=== PATIENT | female | born 1960 | race Caucasian/White ===

== ENCOUNTER 2018-10-16 19:43 | Observation (INO) | payer BC ==
[2018-10-16] MEDS ORDERED: ASPIRIN 81 MG CHEWABLE TABLET PO ONE (20:00)
[2018-10-16] MEDS ORDERED: NITROGLYCERIN 0.4MG SL TABLET #25 BTL SL PRN ×2 (20:08→22:53)
[2018-10-16 20:20] LABS: ABSOLUTE NEUTROPHIL COUNT 4.08; BASO % 0.8 % (0-6); EOS % 1.8 % (0-6); GRAN % 57.7 % (47-80); HEMATOCRIT 40.1 % (35.0-47.0); HEMOGLOBIN 13.4 gm/dl (11.6-16.0); LYMPH % 30.2 % (16-45); MEAN CELL VOLUME 89.3 fl (81-97); MEAN CORPUSCULAR HEMOGLOBIN 29.8 pg (27-33); MEAN CORPUSCULAR HGB CONC 33.4 g/dl (32-36); MEAN PLATELET VOLUME 10.3 fl (7.4-10.4); MONO % 9.5 % (0-9); PLATELET COUNT 225 K/uL (130-400); RED BLOOD COUNT 4.49 M/uL (3.80-5.40); WHITE BLOOD COUNT W/O DIFF 7.1 K/uL (4.2-12.2)
[2018-10-16 20:29] LABS: BLOOD UREA NITROGEN 13 mg/dL (6-20); CREATININE 1.5 mg/dL (0.5-0.9); EST GLOMERULAR FILTRATION RATE 38 mL/min
[2018-10-16 20:32] LABS: GLUCOSE,RANDOM 114 mg/dL (74-109)
[2018-10-16 20:34] LABS: ALT/SGPT 30 U/L (<33); AST/SGOT 26 U/L (10.0-35.0)
[2018-10-16 20:35] LABS: ALBUMIN 4.7 g/dL (4.0-5.0); ALKALINE PHOSPHATASE 73 U/L (35-104); CREATINE PHOSPHOKINASE 104 U/L (26-192)
--- NOTE | 2018-10-16 21:34 | Emergency Department Record ---
History of Present Illness - General Chief Complaint: Chest Pain Stated Complaint: CHEST PAIN Time Seen by Provider: 10/16/18 19:59 Source: Patient Mode of Arrival: Ambulatory Limitations: No limitations - History of Present Illness Initial Comments: pt has been having intermittent cp all week that radiates to her neck, it is pressure like. she has a hx of hi chol and family hx heart diseas. she has felt sob. she also c/o rash that itches on her legs. no n/v. activity increases sob MD Complaint: Chest pain Onset/Timin -: Week(s) Onset: Other Pain Location: Left chest, Right chest Pain Radiation: Neck Severity scale (1-10): 2 Consistency: Intermittent Improves With: Nothing Worsens With: Nothing Anginal Symptoms: Dyspnea Treatments Prior to Arrival: None - Related Data Home Medications Medication Instructions Recorded Confirmed Last Taken Aspirin [Aspir-Low] 81 mg PO QHS 10/16/18 10/16/18 10/15/18 Allergies Allergy/AdvReac Type Severity Reaction Status Date / Time cefaclor [From Ceclor] Allergy hives Verified 10/16/18 20:02 Travel Screening - Travel/Exposure Within Last 30 Days Have you traveled within the last 30 days?: No - Travel/Exposure Within Last Year Have you traveled outside the [place] in the last year?: No - Additonal Travel Details Have you been exposed to anyone with a communicable illness?: No Review of Systems Reviewed: No additional complaints except as noted below Constitutional: Reports: As per HPI. Denies: Chills, Fever, Malaise, Night sweats, Weakness, Weight change Eyes: Reports: As per HPI. Denies: Eye discharge, Eye pain, Photophobia, Vision change ENT: Reports: As per HPI. Denies: Congestion, Dental pain, Ear pain, Epistaxis, Hearing loss, Throat pain Respiratory: Reports: As per HPI. Denies: Cough, Dyspnea, Hemoptysis, Stridor, Wheezes Cardiovascular: Reports: As per HPI, Chest pain, Dyspnea on exertion. Denies: Arrhythmia, Edema, Murmurs, Orthopnea, Palpitations, Paroxysmal nocturnal dyspne a, Rheumatic Fever, Syncope Endocrine: Reports: As per HPI. Denies: Fatigue, Heat or cold intolerance, Polydipsia, Polyuria Gastrointestinal: Reports: As per HPI. Denies: Abdominal pain, Constipation, Diarrhea, Hematemesis, Hematochezia, Melena, Nausea, Vomiting Genitourinary: Reports: As per HPI. Denies: Abnormal menses, Discharge, Dyspareunia, Dysuria, Frequency, Hematuria, Incontinence, Retention, Urgency Musculoskeletal: Reports: As per HPI. Denies: Arthralgia, Back pain, Gout, Joint swelling, Myalgia, Neck pain Skin: Reports: As per HPI. Denies: Bruising, Change in color, Change in hair/nails, Lesions, Pruritus, Rash Neurological: Reports: As per HPI. Denies: Abnormal gait, Confusion, Headache, Numbness, Paresthesias, Seizure, Tingling, Tremors, Vertigo, Weakness Psychiatric: Reports: As per HPI. Denies: Anxiety, Auditory hallucinations, Depression, Homicidal thoughts, Suicidal thoughts, Visual hallucinations Hematological/Lymphatic: Reports: As per HPI. Denies: Anemia, Blood Clots, Easy bleeding, Easy bruising, Swollen glands Past Medical History - SOCIAL HISTORY Smoking Status: Never smoker Alcohol Use: None Drug Use: None - RESPIRATORY Hx Respiratory Disorders: No - CARDIOVASCULAR Hx Cardio Disorders: No - NEURO Hx Neuro Disorders: No - GI Hx GI Disorders: No - Hx Genitourinary Disorders: No - ENDOCRINE Hx Endocrine Disorders: No - MUSCULOSKELETAL Hx Musculoskeletal Disorders: No - PSYCH Hx Psych Problems: No - HEMATOLOGY/ONCOLOGY Hx Hematology/Oncology Disorders: No Family Medical History Any Significant Family History?: Yes Hx Diabetes: Mother Hx Heart Disease: Mother Hx HTN: Mother Hx Kidney Disease: Mother Physical Exam - General General Appearance: Alert, Oriented x3, Cooperative, Mild distress - Head Head exam: Normal inspection - Eye Eye exam: Normal appearance, PERRL, EOMI Pupils: Normal accommodation - ENT ENT exam: Normal exam, Mucous membranes moist, Normal external ear exam, Normal orophraynx Ear exam: Normal external inspection. negative: External canal tenderness Nasal Exam: Normal inspection. negative: Discharge, Sinus tenderness Mouth exam: Normal external inspection, Tongue normal Teeth exam: Normal inspection. negative: Dental caries Throat exam: Normal inspection. negative: Tonsillar erythema, Tonsillar exudate - Neck Neck exam: Normal inspection, Full ROM. negative: Tenderness - Respiratory Respiratory exam: Normal lung sounds bilaterally. negative: Respiratory distress - Cardiovascular Cardiovascular Exam: Regular rate, Normal rhythm, Normal heart sounds - GI/Abdominal GI/Abdominal exam: Soft, Normal bowel sounds. negative: Tenderness - Rectal Rectal exam: Deferred - exam: Deferred - Extremities Extremities exam: Normal inspection, Full ROM, Normal capillary refill. negative: Tenderness - Back Back exam: Reports: Normal inspection, Full ROM. Denies: Muscle spasm, Rash noted, Tenderness - Neurological Neurological exam: Alert, CN II-XII intact, Normal gait, Oriented X3 - Psychiatric Psychiatric exam: Normal affect, Normal mood - Skin Skin exam: Dry, Intact, Normal color, Rash, Warm Distribution of rash: RLE, LLE Description of rash: Macular, Papular, Vesicular Course Vital Signs 10/16/18 19:50 Temperature 97.7 F Pulse Rate 68 Respiratory 20 Rate Blood Pressure 141/81 Pulse Ox 97 - Reevaluation(s) Reevaluation #1: 10/16/18 22:11 pt had no further cp Reevaluation #2: 10/16/18 22:20 pt remained pain free Medical Decision Making - Lab Data Result diagrams: 10/16/18 19:50 10/16/18 19:50 Lab Results 10/16/18 10/16/18 10/16/18 Range/Units 19:50 19:50 19:50 WBC 7.1 (4.2-12.2) K/uL RBC 4.49 (3.80-5.40) M/uL Hgb 13.4 (11.6-16.0) gm/dl Hct 40.1 (35.0-47.0) % MCV 89.3 (81-97) fl MCH 29.8 (27-33) pg MCHC 33.4 (32-36) g/dl RDW 13.0 (11.5-14.5) % Plt Count 225 (130-400) K/uL MPV 10.3 (7.4-10.4) fl Gran % 57.7 (47-80) % Lymphocytes % 30.2 (16-45) % Monocytes % 9.5 H (0-9) % Eosinophils % 1.8 (0-6) % Basophils % 0.8 (0-6) % Absolute Neutrophils 4.08 D-Dimer 0.30 (0-0.59) mg/L FEU Sodium 141 (136-145) mmol/L Potassium 4.0 (3.4-4.5) mmol/L Chloride 102 (98-107) mmol/L Carbon Dioxide 26.0 (22-29) mmol/L Anion Gap 13.0 (7-16) BUN 13 (6-20) mg/dL Creatinine 1.5 H (0.5-0.9) mg/dL Estimated GFR 38 mL/min Random Glucose 114 H (74-109) mg/dL Calcium 9.4 (8.6-10.0) mg/dL Total Bilirubin 0.50 (0.2-1.0) mg/dL AST 26 (10.0-35.0) U/L ALT 30 (<33) U/L Alkaline Phosphatase 73 (35-104) U/L Creatine Kinase 104 (26-192) U/L Troponin T < 0.010 (0-0.010) ng/mL Total Protein 7.0 (6.6-8.7) g/dL Albumin 4.7 (4.0-5.0) g/dL Globulin 2.3 (1.4-4.8) gm/dL Albumin/Globulin Ratio 2.0 H (1.1-1.8) Disposition Disposition: Admit Clinical Impression: Poison samantha Chest pain Qualifiers: Chest pain type: unspecified Qualified Code(s): R07.9 - Chest pain, unspecified Disposition: Still a Patient at [facility] Decision to Admit: Admit from ER Decision to Admit Date: 10/16/18 Decision to Admit Time: 22:13 Quality - Quality Measures Quality Measures: N/A - Blood Pressure Screening Does Patient Have Any of the Following: No Blood Pressure Classification: Pre-Hypertensive BP Reading Systolic Measurement: 141 Diastolic Measurement: 81 Screening for High Blood Pressure: < Pre-Hypertensive BP, F/U Documented > [G8950] Pre-Hypertensive Follow-up Interventions: Follow-up with rescreen every year.
[2018-10-16] MEDS ORDERED: ACETAMINOPHEN 500 MG TABLET PO PRN (22:53)
[2018-10-16] MEDS ORDERED: METHYLPREDNISOLONE 4 MG PO SCH (22:53)
[2018-10-16] MEDS: DIPHENHYDRAMINE HCL 25 MG CAPSULE PO PRN (23:11)
[2018-10-17] MEDS ORDERED: METHYLPREDNISOLONE 4 MG PO ONE (00:30)
[2018-10-17] MEDS ORDERED: PREDNISONE 20 MG TAB PO ONE (01:14)
[2018-10-17 05:17] LABS: CKMB 1.4 ng/mL (<3.77)
--- NOTE | 2018-10-17 06:48 | History & Physical ---
History of Present Illness - Date of Service Date of Service for History & Physical: 10/17/18 - History of Present Illness Admitting Diagnosis: chest pain, poison samantha History of Present Illness: Mrs. Gavin is a 58 y/o female with presentatin for rash of the right lower leg since Monday. The patient initially went to [facility] for her rash but also complained of intermittent chest pain since about 2 weeks with mild shortness of breath. The patient says that it comes and goes and some times radiates to her left neck. She describes the pain as 1/10 in quality, dull, and not associated with position. The patient has a history of GERD which she says flares up quite frequently despite being on Omeprazole but says that this pain felt a little different. She denies previous history of heart disease, does not smoke, use alcohol or has any other risk factors. The patient is admitted for observation on janitor and serial troponins. CXR: Negative for acute cardiopulmonary findings. Labs: Troponins negative x 2 ECG: NSR, no ST-T wave elevations, Qtc 424. celery tier: no acute arrhythmias noted on rhythm strip. PCP: (@ Fidel Gudino) Travel Screening - Travel/Exposure Within Last 30 Days Have you traveled within the last 30 days?: Yes Location Detail:: [place] - Travel/Exposure Within Last Year Have you traveled outside the [place] in the last year?: No - Additonal Travel Details Have you been exposed to anyone with a communicable illness?: No - Travel Symptoms Symptom Screening: Rash - Additional Travel Comment Additional Travel/Exposure Comment: has poison samantha rash bilateral LE Review of Systems Constitutional: Reports: As per HPI. Denies: Chills, Fever, Malaise, Night sweats, Weakness, Weight change Eyes: Reports: As per HPI. Denies: Eye discharge, Eye pain, Photophobia, Vision change ENT: Reports: As per HPI. Denies: Congestion, Dental pain, Ear pain, Epistaxis, Hearing loss, Throat pain Respiratory: Reports: As per HPI. Denies: Cough, Dyspnea, Hemoptysis, Stridor, Wheezes Cardiovascular: Reports: As per HPI, Chest pain, Dyspnea on exertion. Denies: Arrhythmia, Edema, Murmurs, Orthopnea, Palpitations, Paroxysmal nocturnal dyspnea, Rheumatic Fever, Syncope Endocrine: Reports: As per HPI. Denies: Fatigue, Heat or cold intolerance, Polydipsia, Polyuria Gastrointestinal: Reports: As per HPI. Denies: Abdominal pain, Constipation, Diarrhea, Hematemesis, Hematochezia, Melena, Nausea, Vomiting Genitourinary: Reports: As per HPI. Denies: Abnormal menses, Discharge, Dyspareunia, Dysuria, Frequency, Hematuria, Incontinence, Retention, Urgency Musculoskeletal: Reports: As per HPI. Denies: Arthralgia, Back pain, Gout, Joint swelling, Myalgia, Neck pain Skin: Reports: As per HPI. Denies: Bruising, Change in color, Change in hair/nails, Lesions, Pruritus, Rash Neurological: Reports: As per HPI. Denies: Abnormal gait, Confusion, Headache, Numbness, Paresthesias, Seizure, Tingling, Tremors, Vertigo, Weakness Psychiatric: Reports: As per HPI. Denies: Anxiety, Auditory hallucinations, Depression, Homicidal thoughts, Suicidal thoughts, Visual hallucinations Hematological/Lymphatic: Reports: As per HPI. Denies: Anemia, Blood Clots, Easy bleeding, Easy bruising, Swollen glands Past Medical History - SOCIAL HISTORY Smoking Status: Never smoker Alcohol Use: None Drug Use: None - RESPIRATORY Hx Respiratory Disorders: No - CARDIOVASCULAR Hx Cardio Disorders: No - NEURO Hx Neuro Disorders: No - GI Hx GI Disorders: No - Hx Genitourinary Disorders: No - ENDOCRINE Hx Endocrine Disorders: No - MUSCULOSKELETAL Hx Musculoskeletal Disorders: No - PSYCH Hx Psych Problems: No - HEMATOLOGY/ONCOLOGY Hx Hematology/Oncology Disorders: No Family Medical History Any Significant Family History?: Yes Hx Diabetes: Mother Hx Heart Disease: Mother Hx HTN: Mother Hx Kidney Disease: Mother H&P Meds/Allergies - Allergies Allergies: Allergies Allergy/AdvReac Type Severity Reaction Status Date / Time cefaclor [From [facility]] Allergy hives Verified 10/16/18 20:02 - Home Medications Home Medications Medication Instructions Recorded Confirmed Last Taken Aspirin [Aspir-Low] 81 mg PO QHS 10/16/18 10/16/18 10/15/18 - Active Medications Active Medications: Current Medications Acetaminophen (Tylenol 500mg Tab) 1,000 mg PO Q6H PRN PRN Reason: PAIN - MILD(1-4)/FEVER Aspirin (Ecotrin (Ec)) 325 mg PO DAILY SANYA Diphenhydramine HCl (Benadryl Capsule) 50 mg PO Q6H PRN PRN Reason: ITCHING Last Admin: 10/16/18 23:11 Dose: 50 mg Documented by: Methylprednisolone (Medrol Dose Pack) 4 mg PO ASDIR SANYA Nitroglycerin (Nitrostat 0.4mg) 0.4 mg SL Q5MIN PRN PRN Reason: CHEST PAIN Simvastatin (Zocor) 40 mg PO QHS SANYA Physical Exam - Vital Signs Vital Signs: Vital Signs - Last 24 Hrs Temp Pulse Pulse Resp BP BP Pulse Ox 10/17/18 04:53 98.8 F 62 16 119/65 96 10/17/18 00:53 98.1 F 59 L 16 101/62 98 10/16/18 22:44 72 20 126/82 95 10/16/18 22:40 97.9 F 70 16 144/79 98 10/16/18 21:31 62 129/83 96 10/16/18 19:50 97.7 F 68 20 141/81 97 - General General Appearance: Alert, Oriented x3, Cooperative, Mild distress Limitations: No limitations - Head Head exam: Normal inspection - Eye Eye exam: Normal appearance, PERRL, EOMI Pupils: Normal accommodation - ENT ENT exam: Normal exam, Mucous membranes moist, Normal external ear exam, Normal orophraynx Ear exam: Normal external inspection. negative: External canal tenderness Nasal Exam: Normal inspection. negative: Discharge, Sinus tenderness Mouth exam: Normal external inspection, Tongue normal Teeth exam: Normal inspection. negative: Dental caries Throat exam: Normal inspection. negative: Tonsillar erythema, Tonsillar exudate - Neck Neck exam: Normal inspection, Full ROM. negative: Tenderness - Respiratory Respiratory exam: Normal lung sounds bilaterally. negative: Respiratory distress - Cardiovascular Cardiovascular Exam: Regular rate, Normal rhythm, Normal heart sounds Peripheral Pulses: 3+: Radial (R), Radial (L), Dorsalis Pedis (R), Dorsalis Pedis (L) - GI/Abdominal GI/Abdominal exam: Soft, Normal bowel sounds. negative: Tenderness - Rectal Rectal exam: Deferred - exam: Deferred - Extremities Extremities exam: Normal inspection, Full ROM, Normal capillary refill. negative: Tenderness - Back Back exam: Reports: Normal inspection, Full ROM. Denies: Muscle spasm, Rash noted, Tenderness - Neurological Neurological exam: Alert, CN II-XII intact, Normal gait, Oriented X3 - Psychiatric Psychiatric exam: Normal affect, Normal mood - Skin Skin exam: Dry, Intact, Normal color, Rash, Warm Distribution of rash: RLE, LLE Description of rash: Macular, Papular, Vesicular Results - Labs Result Diagrams: 10/16/18 19:50 10/16/18 19:50 Labs Last 24 Hours: Laboratory Results - last 24 hr 10/16/18 10/16/18 10/16/18 19:50 19:50 19:50 WBC 7.1 RBC 4.49 Hgb 13.4 Hct 40.1 MCV 89.3 MCH 29.8 MCHC 33.4 RDW 13.0 Plt Count 225 MPV 10.3 Gran % 57.7 Lymphocytes % 30.2 Monocytes % 9.5 H Eosinophils % 1.8 Basophils % 0.8 Absolute Neutrophils 4.08 D-Dimer 0.30 Sodium 141 Potassium 4.0 Chloride 102 Carbon Dioxide 26.0 Anion Gap 13.0 BUN 13 Creatinine 1.5 H Estimated GFR 38 Random Glucose 114 H Calcium 9.4 Total Bilirubin 0.50 AST 26 ALT 30 Alkaline Phosphatase 73 Creatine Kinase 104 CK-MB (CK-2) Troponin T < 0.010 Total Protein 7.0 Albumin 4.7 Globulin 2.3 Albumin/Globulin Ratio 2.0 H Triglycerides Cholesterol LDL Cholesterol Measurd VLDL Cholesterol HDL Cholesterol 10/16/18 10/17/18 19:50 04:50 WBC RBC Hgb Hct MCV MCH MCHC RDW Plt Count MPV Gran % Lymphocytes % Monocytes % Eosinophils % Basophils % Absolute Neutrophils D-Dimer Sodium Potassium Chloride Carbon Dioxide Anion Gap BUN Creatinine Estimated GFR Random Glucose Calcium Total Bilirubin AST ALT Alkaline Phosphatase Creatine Kinase CK-MB (CK-2) 1.4 Troponin T < 0.010 Total Protein Albumin Globulin Albumin/Globulin Ratio Triglycerides 138 Cholesterol 158 LDL Cholesterol Measurd 102.0 H VLDL Cholesterol 27 HDL Cholesterol 40 VTE H&P Assessment - Risk for VTE Risk for VTE: No Risk Level: Very Low Risk Assessment Date: 10/17/18 Risk Assessment Time: 10:08 VTE Orders Placed or Will Be Placed: No VTE Reason for No Prophylaxis: Not Indicated (Ambulatory and no risk factors ) Plan - Detailed Diagnosis and Plan (1) Chest pain Current Visit: Yes Status: Acute Qualifiers: Chest pain type: unspecified Qualified Code(s): R07.9 - Chest pain, unspecified Base Code: R07.9 - CHEST PAIN, UNSPECIFIED Comment: 10/17/18: - R/O ACS: Troponins negative x 2, CXR negative, ECG: no acute ST-T changes noted. - celery tier w/o acute arrhythmias over the past 12 hours. ASA 325mg given. - Patient currently asymptomatic. - No hx of ACS or risk factors of smoking, Etoh, DM. Hx + for GERD and HLD on statin. - Discussed with Cardiology and given symptoms and low risk outpatient workup from GI or Cardiology for stress test if needed. (2) HLD (hyperlipidemia) Current Visit: Yes Status: Acute Base Code: E78.5 - HYPERLIPIDEMIA, UNSP ECIFIED Comment: 10/17/18: - Resume Simvastatin 40mg QD. (3) Poison samantha Current Visit: Yes Status: Acute Base Code: L23.7 - ALLERGIC CONTACT DERMATITIS DUE TO PLANTS, EXCEPT FOOD Comment: 10/17/18: - Predniosne 20mg PO daily x 5 days. - Apply topical Hydrocortisone 2% BID PRN. - Benadryl 50mg QD PRN for pruritis. (4) GERD (gastroesophageal reflux disease) Current Visit: Yes Status: Chronic Base Code: K21.9 - GASTRO-ESOPHAGEAL REFLUX DISEASE WITHOUT ESOPHAGITIS Comment: 10/17/18: - Resume home dose of Omeprazole 20mg QD. (5) Full code status Current Visit: Yes Status: Acute Base Code: Z78.9 - OTHER SPECIFIED HEALTH STATUS Comment: 10/17/18: - Pt is full code.
[2018-10-17] MEDS ORDERED: PANTOPRAZOLE SODIUM 40 MG TABLET PO SCH (07:00)
[2018-10-17] MEDS: DIPHENHYDRAMINE HCL 25 MG CAPSULE PO PRN (09:10)
[2018-10-17] MEDS ORDERED: ASPIRIN 325 MG TAB ENTERIC-COATED PO SCH (10:00)
--- NOTE | 2018-10-17 12:06 | Discharge Summary ---
Providers Discharge Summary Date: 10/17/18 Date of admission: 10/16/18 22:32 Attending physician: FABIANO DE LEON Consults: Consult Orders 10/16/18 22:53 Consult NOW Consulting Provider: Casey Kenny Physician Instructions: Reason For Exam: cp Physical Exam - Vital Signs Vital Signs: Vital Signs - Last 24 Hrs Temp Pulse Pulse Pulse Resp BP BP 10/17/18 09:00 62 65 18 10/17/18 07:45 98.0 F 65 18 116/68 10/17/18 04:53 98.8 F 62 16 119/65 10/17/18 00:53 98.1 F 59 L 16 101/62 10/16/18 22:44 72 20 126/82 10/16/18 22:40 97.9 F 70 16 144/79 10/16/18 21:31 62 129/83 10/16/18 19:50 97.7 F 68 20 141/81 Pulse Ox 10/17/18 09:00 10/17/18 07:45 94 L 10/17/18 04:53 96 10/17/18 00:53 98 10/16/18 22:44 95 10/16/18 22:40 98 10/16/18 21:31 96 10/16/18 19:50 97 - General General Appearance: Alert, Oriented x3, Cooperative, Mild distress Limitations: No limitations - Head Head exam: Normal inspection - Eye Eye exam: Normal appearance, PERRL, EOMI Pupils: Normal accommodation - ENT ENT exam: Normal exam, Mucous membranes moist, Normal external ear exam, Normal orophraynx Ear exam: Normal external inspection. negative: External canal tenderness Nasal Exam: Normal inspection. negative: Discharge, Sinus tenderness Mouth exam: Normal external inspection, Tongue normal Teeth exam: Normal inspection. negative: Dental caries Throat exam: Normal inspection. negative: Tonsillar erythema, Tonsillar exudate - Neck Neck exam: Normal inspection, Full ROM. negative: Tenderness - Respiratory Respiratory exam: Normal lung sounds bilaterally. negative: Respiratory distress - Cardiovascular Cardiovascular Exam: Regular rate, Normal rhythm, Normal heart sounds Peripheral Pulses: 3+: Radial (R), Radial (L), Dorsalis Pedis (R), Dorsalis Pedis (L) - GI/Abdominal GI/Abdominal exam: Soft, Normal bowel sounds. negative: Tenderness - Rectal Rectal exam: Deferred - exam: Deferred - Extremities Extremities exam: Normal inspection, Full ROM, Normal capillary refill. negative: Tenderness - Back Back exam: Reports: Normal inspection, Full ROM. Denies: Muscle spasm, Rash noted, Tenderness - Neurological Neurological exam: Alert, CN II-XII intact, Normal gait, Oriented X3 - Psychiatric Psychiatric exam: Normal affect, Normal mood - Skin Skin exam: Dry, Intact, Normal color, Rash, Warm Distribution of rash: RLE, LLE Description of rash: Macular, Papular, Vesicular Hospitalization - Hospitalization Admission Diagnosis: chest pain, poison samantha - Problem List/Discharge Diagnosis (1) Chest pain Current Visit: Yes Status: Acute Discharge Diagnosis: Chest pain type: unspecified Qualified Code(s): R07.9 - Chest pain, unspecified Base Code: R07.9 - CHEST PAIN, UNSPECIFIED Comment: 10/17/18: - R/O ACS: Troponins negative x 2, CXR negative, ECG: no acute ST-T changes noted. 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 ASA 325mg given. - Patient currently asymptomatic. - No hx of ACS or risk factors of smoking, Etoh, DM. Hx + for GERD and HLD on statin. - Discussed with Cardiology and given symptoms and low risk outpatient workup from GI or Cardiology for stress test if needed. (2) HLD (hyperlipidemia) Current Visit: Yes Status: Acute Base Code: E78.5 - HYPERLIPIDEMIA, UNSPECIFIED Comment: 10/17/18: - Resume Simvastatin 40mg QD. (3) Poison samantha Current Visit: Yes Status: Acute Base Code: L23.7 - ALLERGIC CONTACT DERMATITIS DUE TO PLANTS, EXCEPT FOOD Comment: 10/17/18: - Predniosne 20mg PO daily x 5 days. - Apply topical Hydrocortisone 2% BID PRN. - Benadryl 50mg QD PRN for pruritis. (4) GERD (gastroesophageal reflux disease) Current Visit: Yes Status: Chronic Base Code: K21.9 - GASTRO-ESOPHAGEAL REFLUX DISEASE WITHOUT ESOPHAGITIS Comment: 10/17/18: - Resume home dose of Omeprazole 20mg QD. (5) Full code status Current Visit: Yes Status: Acute Base Code: Z78.9 - OTHER SPECIFIED HEALTH STATUS Comment: 10/17/18: - Pt is full code. - Hospitalization Course Hospital Course: Mrs. Gavin is a 58 y/o female with presentatin for rash of the right lower leg since Monday. The patient initially went to [facility] for her rash but also complained of intermittent chest pain since about 2 weeks with mild shortness of breath. The patient says that it comes and goes and some times radiates to her left neck. She describes the pain as 1/10 in quality, dull, and not associated with position. The patient has a history of GERD which she says flares up quite frequently despite being on Omeprazole but says that this pain felt a little different. She denies previous history of heart disease, does not smoke, use alcohol or has any other risk factors. The patient is admitted for observation on quality assurance monitor chassis and serial troponins. CXR: Negative for acute cardiopulmonary findings. Labs: Troponins negative x 2 ECG: NSR, no ST-T wave elevations, Qtc 424. school lunch monitor: no acute arrhythmias noted on rhythm strip. 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 PRN Reason: Rash Prednisone [Prednisone 20Mg] 20 mg PO DAILYWM #4 tab Home Medications: Ambulatory Orders Aspirin [Aspir-Low] 81 mg PO QHS 10/16/18 [Last Taken 10/15/18] Omeprazole 1 tab PO DAILY PRN 10/16/18 [Last Taken 10/16/18] Simvastatin 1 tab PO DAILY 10/16/18 [Last Taken 10/16/18] Hydrocortisone 28.35 gm TP BID PRN #1 cream..g. 10/17/18 [Last Taken Unknown] Prednisone [Prednisone 20Mg] 20 mg PO DAILYWM #4 tab 10/17/18 [Last Taken Unknown] Discharge Plan - Discharge Instructions Diet at Discharge: Low Fat, Low Cholesterol Additional Instructions: Medications to take on discharge: Prednisone 20mg daily for the next 4 days. Apply topical Hydrocortisone 2% twice daily as needed. Use over the counter benadryl and calamine lotion for relief of itching. Please follow up with your PCP with 5-7 days of discharge. If you experience chest pain or increasing shortness of breath please return to the ED. Quality Measures - Quality Measures Quality Measures: Documentation of Current Medications in Medical Record, Screening for High Blood Pressure and F/U Documented - Current Medications Quality Measure: Measure #130: Documentation of Current Medications Documentation of Current Medications: <Current Medications Documented/Reviewed> [[id number]] - Blood Pressure Screening Quality Measure: Screening for High Blood Pressure and Follow-Up Documented Does Patient Have Any of the Following: No Blood Pressure Classification: Pre-Hypertensive BP Reading Systolic Measurement: 126 Diastolic Measurement: 82 Screening for High Blood Pressure: < Pre-Hypertensive BP, F/U Documented > [G8950] Pre-Hypertensive Follow-up Interventions: Follow-up with rescreen every year., Lifestyle modifications., Referral to alternative/primary care provider. Lifestyle Modification: Weight Reduction - Elder Abuse Suspicion Index EASI Reference Information: Thierry RUVALCABA, Bhupinder C, Mic Mercado, Calli Cook.Development and validation of a tool to assist physicians identification of elder abuse: The Elder Abuse Suspicion Index (EASI ). Journal of Elder Abuse and Neglect, 2008; 20 (3): 276-300.
[2018-10-17 14:04] LABS: CKMB 1.2 ng/mL (<3.77)
[2018-10-17] MEDS ORDERED: SIMVASTATIN 20 MG TABLET PO SCH (22:00)
[2018-10-18] MEDS ORDERED: PREDNISONE 20 MG TAB PO SCH (08:00)
== END 2018-10-17 15:15 | disposition home or self-care (01) ==
LOC: ER 19:43 → MEDSURG 22:32
PROVIDERS: ADMIT Internal Medicine; ATTEND Internal Medicine
DX: R07.9 Chest pain, unspecified (principal); L23.7 Allergic contact dermatitis due to plants, except food; E78.5 Hyperlipidemia, unspecified; K21.9 Gastro-esophageal reflux disease without esophagitis
CPT/HCPCS: 71046; 80053; 80061; 82550; 82553; 84484; 85025; 85379; 93005; 93010; 99220; 99285; J7509; J7512

== ENCOUNTER 2019-04-08 12:56 | Day surgery (SDC) | payer BC ==
[2019-04-08] MEDS ORDERED: PROPOFOL 10 MG/ML VIAL IV ONE (12:57)
[2019-04-08] MEDS ORDERED: LIDOCAINE 2% MDV (20MG/ML) 20ML VIAL IV ONE (12:57)
--- NOTE | 2019-04-11 08:20 | Operative Note ---
OPERATION: ESOPHAGOGASTRODUODENOSCOPY with biopsy. PREOPERATIVE DIAGNOSIS: Episodic dysphagia and heartburn. POSTOPERATIVE DIAGNOSES: 1. Small hiatal hernia. 2. Irregular Z line. 3. Rule out short-segment Diggs's. PROCEDURE: After informed consent was obtained from the patient, she was placed in the left lateral decubitus position in the endoscopy suite, sedated and monitored by the department of anesthesia. A well-lubricated [id number] gastroscope was placed in the posterior oropharynx under direct visualization and passed to the proximal esophagus. The endoscope was advanced through the proximal, mid, and distal esophagus. The GE junction demonstrated irregularity of the squamocolumnar border. There was a wide-caliber ring. There was a small hiatal hernia. The subdiaphragmatic stomach demonstrated normal distensibility, normal rugal folds. The body, antrum, pylorus, duodenal bulb, and sweep were unremarkable. J-turn views of the proximal stomach were unrevealing. The endoscope was then straightened. GE junction biopsies were obtained. The endoscope was removed from the patient with no new findings noted. RECOMMENDATIONS: I would suggest the patient continue on her daily PPI. She states that her dysphagia has improved with her current dosing. If she has recurrent dysphagia, an esophagram would be suggested. At that time, I would recommend a barium tablet be utilized. As always, thank you for allowing me to participate in the healthcare of your patients. MYRIAM
== END 2019-04-08 15:05 | disposition home or self-care (01) ==
LOC: HOP 12:56
PROVIDERS: ATTEND Internal Medicine Gastroenterology
DX: K22.8 Other specified diseases of esophagus (principal); K44.9 Diaphragmatic hernia without obstruction or gangrene